=== PATIENT | male | born 1995 | race Caucasian/White ===

== ENCOUNTER 2021-04-17 18:22 | Emergency (ER) | payer OTHER ==
[~2021-04-17] VITALS: Ht 182.9 cm; Wt 102.0 kg
[2021-04-17 20:44] VITALS: BP 147/67
== END 2021-04-17 20:46 | disposition home or self-care (01) ==
LOC: ER 18:23
DX: M25.562 Pain in left knee (principal)
CPT/HCPCS: 29505; 73560; 99284